=== PATIENT | female | born 1990 | race American Indian/Alaskan Native ===

== ENCOUNTER 2017-01-17 12:03 | Day surgery (SDC) | payer MEDICAID ==
[2017-01-17] MEDS ORDERED: NACL BACTERIOSTATIC INFILTRATI ONE (12:41)
[2017-01-17] MEDS ORDERED: DIPRIVAN 10 MG/ML IV ONE ×3 (12:48→15:00)
[2017-01-17] MEDS ORDERED: SUBLIMAZE ONE (12:48)
[2017-01-17] MEDS ORDERED: XYLOCAINE MPF 2% ONE (12:49)
[2017-01-17] MEDS ORDERED: NEO SYNEPHRINE/NS Syringe(OR USE) IV ONE (13:00)
--- NOTE | 2017-01-17 13:01 | Anesthesia Consultation ---
Anesthesia Consult and Med Hx Date of service: 01/20/17 - Airway Anesthetic Teeth Evaluation: Good ROM Head & Neck: Adequate Mental/Hyoid Distance: Adequate Mallampati Class: Class I Intubation Access Assessment: Good - Pulmonary Exam CTA: Yes - Cardiac Exam Cardiac Exam: RRR - Pre-Operative Health Status ASA Pre-Surgery Classification: ASA2 Proposed Anesthetic Plan: General, IV Sedation - Pulmonary Hx Smoking: No Hx Asthma: Yes (SEASONAL) Hx Sleep Apnea: No (KAUSHIK PRE SCREEN LOW RISK) - Cardiovascular System Hx Hypertension: No - Gastrointestinal Hx Gastroesophageal Reflux Disease: Yes (on meds) - Other Systems Hx Alcohol Use: Yes (SOCIALLY MIX DRINK) Hx Substance Use: Yes (PAST MAURIJUANA USE 3 YEARS AGO) Hx Cancer: No Hx Obesity: Yes - Additional Comments Anesthesia Medical History Comments: no anesthetic problems with previous surgery.
--- NOTE | 2017-01-17 13:02 | Anesthesia Day of Surgery ---
Anesthesia Day of Surgery - Day of Surgery Patient Examined: Yes Patient H&P Reviewed: Yes Patient is NPO: Yes
[2017-01-17 13:07] LABS: Basophils % (Auto) 0.5 % (0.0-1.8); Hematocrit 34.8 % (30.3-42.9); Hemoglobin 11.3 gm/dl (10.1-14.3); Mean Corpuscular HGB Conc 32 % (30-34); Mean Corpuscular Hemoglobin 28 pg (28-32); Mean Corpuscular Volume 87 fl (79-97); Platelet Count 358 K/mm3 (140-440); Red Blood Count 3.98 M/mm3 (3.65-5.03); Red Cell Distribution Width 14.2 % (13.2-15.2); White Blood Count 6.8 K/mm3 (4.5-11.0)
--- NOTE | 2017-01-17 13:50 | XRay Report ---
RIGHT HUMERUS RADIOGRAPHS INDICATION: Soft tissue mass. Evaluate for foreign body. COMPARISON: None similar. FINDINGS: Single frontal view demonstrates intact right humerus and adjacent included shoulder and elbow articulations. No radiopaque foreign body noted within overlying soft tissues. CONCLUSION: Intact right humerus, as described. Please correlate. Thank you for the opportunity to participate in this patient's care.
[2017-01-17] MEDS ORDERED: MARCAINE-EPI 0.5%-1:200,000 INFILTRATI ONE (13:54)
[2017-01-17] MEDS ORDERED: XYLOCAINE 1% 20 mL ONE (13:54)
[2017-01-17] MEDS ORDERED: VERSED IV NR (14:00)
[2017-01-17] MEDS ORDERED: LACTATED RINGERS 1,000 ML IV SCH (14:00)
[2017-01-17] MEDS ORDERED: PEPCID PO NR (14:00)
[2017-01-17] MEDS ORDERED: ANCEF/STERILE WATER 2 GM/20 ML 2 GM/20 ML SYRINGE IV ONE (14:06)
[2017-01-17] MEDS ORDERED: MARCAINE 0.5% 30 ML INFILTRATI ONE (14:10)
[2017-01-17] MEDS ORDERED: ZOFRAN ONE (14:34)
[2017-01-17] MEDS ORDERED: TORADOL ONE (14:37)
[2017-01-17] MEDS ORDERED: MARCAINE 0.5% INFILTRATI ONE ×2 (14:41)
[2017-01-17] MEDS ORDERED: XYLOCAINE 1% 20 mL INFILTRATI ONE ×2 (14:41)
[2017-01-17] MEDS ORDERED: ANCEF/STERILE WATER 2 GM/20 ML IV NR (15:00)
--- NOTE | 2017-01-17 15:28 | Discharge Summary ---
Short Stay Discharge Plan Activity: advance as tolerated Diet: regular Wound: per your surgeon's advice Follow up with: PRIMARY CARE, [Primary Care Provider] - 7 Days
[2017-01-17] MEDS ORDERED: LACTATED RINGERS 1,000 ML ONE (15:31)
[2017-01-17] MEDS: DILAUDID IV PRN ×3 (15:45→16:05)
[2017-01-17] MEDS ORDERED: DILAUDID ONE (15:45)
--- NOTE | 2017-01-17 17:48 | Post Anesthesia Evaluation ---
- Post Anesthesia Evaluation Patient Participated: Yes Airway Patent: Yes Stable Respiratory Function: Yes Nausea/Vomiting: No Temp > 96.8F: Yes Pain Manageable: Yes Adequeate Hydration: Yes Anesthesia Complications: No Block Receding Appropriately: Not Applicable Patient on Ventilator: No
[2017-01-17 17:54] VITALS: BP 107/66
--- NOTE | 2017-01-17 22:00 | Operative Report ---
PREOPERATIVE DIAGNOSIS: Large mass, right arm. POSTOPERATIVE DIAGNOSIS: Huge multilobulated lipoma, status post exploration of the area. SURGERY: Excision of a mass, right arm medial aspect of the arm just proximal to the joint. ANESTHESIA: General. BLOOD LOSS: Minimal. FINDINGS: The patient had a large multilobulated lipoma that to me it was a good 15 x 8 x 8 cm located subcutaneous tissue with very redundant tissue in the area. This was done under general anesthesia. DESCRIPTION OF PROCEDURE: With the patient in supine position with the arm extended prepped and draped in usual fashion. I made a spindle-shaped incision with the length of about 12 x 5 cm, deep subcutaneous tissue. I was able to remove the mass in toto using electrocautery. This was removed in toto. We had good hemostasis. Then, the wound was closed in layers. I used 2-0 Vicryl for the subcutaneous tissue interruptedly and the skin has got to be approximated because it was very redundant tissue with the tension sutures of 2-0 nylon [id number] fashion. A bandage was then applied. Then, using for that purpose 4 x 4 and an [place] bandage, I used a 6-inch [place] bandage and a 4-inch as well. We had good hemostasis. We did provide the patient with a sling to the arm. The patient is to see me in about 10 days. We will be giving her extra strength Tylenol 2 every 4 hours p.r.n. for pain, to call me if she has any problem otherwise. To keep the sling on. JOB# [id number] NOE/INDIA FLORES
--- NOTE | 2017-01-18 01:02 | Discharge Summary ---
FINAL DIAGNOSES: Huge multilobulated lipoma, status post exploration, few years ago over the medial subcutaneous aspect of the right arm just superior to the joint. HOSPITAL COURSE: This was done under general anesthesia and we put a bandage over the area with a sling around the neck. She was discharged home to be seen in my office in about 10 days. I asked her to take two extra strength Tylenol every 4 hours p.r.n. for pain. To call me if she has any problem, otherwise, to see me in about a week. JOB# [id number] NOE/INDIA
== END 2017-01-17 17:20 | disposition home or self-care (01) ==
LOC: OR 12:03
PROVIDERS: ATTEND Surgery
DX: D17.21 Benign lipomatous neoplasm of skin and subcutaneous tissue of right arm (principal); F12.21 Cannabis dependence, in remission; K21.9 Gastro-esophageal reflux disease without esophagitis; E66.9 Obesity, unspecified; Z68.42 Body mass index [BMI] 45.0-49.9, adult; Z72.89 Other problems related to lifestyle; Z88.1 Allergy status to other antibiotic agents; Z88.5 Allergy status to narcotic agent; Z88.8 Allergy status to other drugs, medicaments and biological substances
CPT/HCPCS: 24071; 36415; 73060; 81025; 85025; 88304; J0690; J1170; J1885; J2250; J2370; J2405; J2704; J3010; J7120; 88307